=== PATIENT | female | born 1955 | race Caucasian/White ===

== ENCOUNTER 2021-09-19 14:50 | Outpatient (REF) | payer MEDICARE, OTHER, SELFPAY ==
--- NOTE | ~2021-09-19 | MM_ITS ---
EXAMINATION: MM SCREENING DIGITAL BREAST TOMOSYNTHESIS, BILATERAL CLINICAL INFORMATION: Screening. Asymptomatic. The lifetime risk of breast cancer based on the Tyrer-Cuzick Model is 6.0%. COMPARISON: Mammography: May 06, 2019 and studies dating back to July 09, 2009 TECHNIQUE: Digital breast tomosynthesis is performed in both the craniocaudal and mediolateral oblique views along with computer-aided detection (CAD). Synthesized 2D images are generated from the tomosynthesis. FINDINGS: The breasts are almost entirely fatty (ACR BI-RADS breast composition Category a). There are no significant masses, abnormal calcifications, or other abnormalities. MM/MM tomosynthesis screening BI IMPRESSION: There are no significant changes from prior study. ASSESSMENT: BI-RADS 1: Negative RECOMMENDATION: Routine annual mammography screening. This patient's information was entered into a reminder system with a target due date for their next mammogram.
== END 2021-09-19 14:51 | disposition home or self-care (01) ==
LOC: HO.MAMMO 14:50
PROVIDERS: PCP Internal Medicine; Visit Provider Internal Medicine
DX: Z12.31 Encounter for screening mammogram for malignant neoplasm of breast (principal)
CPT/HCPCS: 77063; 77067

== ENCOUNTER 2024-02-22 13:15 | Outpatient (REF) | payer MEDICARE, SELFPAY ==
--- NOTE | ~2024-02-22 | MM_ITS ---
EXAMINATION: MM SCREENING DIGITAL BREAST TOMOSYNTHESIS, BILATERAL CLINICAL INFORMATION: Screening. Asymptomatic. COMPARISON: Mammography: This study is compared with prior exams dating back to TECHNIQUE: Digital breast tomosynthesis is performed in both the craniocaudal and mediolateral oblique views along with computer-aided detection (CAD). Synthesized 2D images are generated from the tomosynthesis. FINDINGS: The breasts are almost entirely fatty (ACR BI-RADS breast composition Category a). Circumscribed oval mass upper central breast middle depth stable dating back to 2013. There are no significant masses, abnormal calcifications, or other abnormalities. MM/MM tomosynthesis screening BI IMPRESSION: No mammographic evidence of malignancy. ASSESSMENT: BI-RADS BI-RADS 2 - Benign Findings RECOMMENDATION: Routine annual mammography screening. 1 year F/U This examination should not preclude the clinical evaluation of a suspicious palpable abnormality. This patient's information was entered into a reminder system with a target due date for their next mammogram. Electronically signed by: Pauline Muir DO 03/22/2024 05:10 PM EDT
== END 2024-02-22 13:16 | disposition home or self-care (01) ==
LOC: HO.MAMMO 13:15
PROVIDERS: PCP Internal Medicine; Visit Provider Internal Medicine
DX: Z12.31 Encounter for screening mammogram for malignant neoplasm of breast (principal)
CPT/HCPCS: 77063; 77067

== ENCOUNTER → 2024-02-22 13:30 | Outpatient (BNV) | payer MEDICARE, SELFPAY | PROVIDERS: PCP Internal Medicine; Visit Provider Internal Medicine | DX: Z12.31 Encounter for screening mammogram for malignant neoplasm of breast (principal) | CPT/HCPCS: 77063; 77067 ==

== ENCOUNTER 2025-03-06 09:47 | Outpatient (REF) | payer MEDICARE, SELFPAY ==
--- NOTE | ~2025-03-06 | MM_ITS ---
EXAMINATION: MM SCREENING DIGITAL BREAST TOMOSYNTHESIS, BILATERAL CLINICAL INFORMATION: Screening. Asymptomatic. COMPARISON: Mammography: Comparison is made with available priors TECHNIQUE: Digital breast mammography with tomosynthesis is performed in both the craniocaudal and mediolateral oblique views along with computer-aided detection (CAD). FINDINGS: There are scattered areas of fibroglandular density (ACR BI-RADS breast composition Category b). There are no significant masses, abnormal calcifications, or other abnormalities. MM/MM tomosynthesis screening BI IMPRESSION: No mammographic evidence of malignancy. ASSESSMENT: BI-RADS BI-RADS 1 - Negative RECOMMENDATION: Routine annual mammography screening. 1 year F/U This examination should not preclude the clinical evaluation of a suspicious palpable abnormality. This patient's information was entered into a reminder system with a target due date for their next mammogram. Electronically signed by: Pauline Muir DO 03/12/2025 05:27 PM EDT
--- OUTSIDE RECORDS SUMMARY | 2025-03-06 11:02 | XMS_ITS | Patient Health Record ---
[facility] Address [address] [place] [address] Care Team Providers Care Solid Waste Landfill Technician Name Role Phone Benji Campuzano MD Primary Care Provider UnavailJere Colvin Unavailable [phone] Reason For Referral No Information Medications Medication SIG (Take, Route, Fr equency, Duration) Notes Start Date End Date Status Physical Therapy . . dx: arthritis, spr ain and talar injury right foot and ankle 2-3x/week; Duration: 3-4 weeks 2016 A ctive Synthroid Active Physical Therapy . . dx: arthritis, spr ain and talar injury right foot and ankle 2-3x/week; Duration: 3-4 weeks A ctive Problems Problem Type SNOMED Code ICD Code Onset Dates Problem Status W/U Status Risk Notes Problem Primary osteoarthritis , right ankle and foot (M19.071) Active confirmed Plan Of Treatment Pending Test Test Name Order Date X ray : Foot, right 2V 2016 X ray : Ankle, right 3V 2016 Insurance Providers Payer Name Payer Address Payer Phone Subscriber Number Group Number Insured Name Patient Relationship to Insured Coverage Start Date Coverage End Date [facility] [address] [place] [address] [id number] Aurelia Diaz Self - patient is the insured Medical (General) History Medical History History ICD Code Measles Chicken pox Thyroid disorder Hospitalization History Reason Date(Month/Year) [facility] for [facility] foot - 02/27
--- OUTSIDE RECORDS SUMMARY | 2025-03-06 11:02 | XMS_ITS | Clinical Summary ---
Author Organization [facility] [address] [facility] Address [address] [place] [address] Phone Care Team Providers Care Grey Percher Name Role Phone Marianela Blackmon MD Primary Care Provider [phone] Allergies No known active allergies Medications albuterol sulfate (ProAir RespiClick) 90 mcg/actuation aerosol powdr breath activated Inhale 2 Puffs into the lungs every 4 hours as needed (sob). 11/20/19 23 Active cholecalcifero l (VITAMIN D-3) 50 mcg (2,000 unit) tablet 2,000 Units daily. 02/17/20 14 Active cyanocobalamin (VITAMIN B-12) 500 mcg tablet Take 1 Tablet by mouth daily for 360 days. 04/28/20 24 025 Active levothyroxine (SYNTHROID, LEVOTHROID) 100 mcg tablet TAKE 1 TABLET BY MOUTH EVERY DAY 90 tablet 3 06/21/20 24 Active pantoprazole (PROTONIX) 40 mg EC tablet Take 1 tablet (40 mg total) by mouth 1 (one) time each day. Do not crush, chew, or split. 30 each 5 09/21/19 25 025 Active busPIRone (BUSPAR) 10 mg tablet TAKE 1 TABLET BY MOUTH THREE TIMES A DAY 270 tablet 5 12/12/19 25 Active fluticasone propionate (FLONASE) 50 mcg/actuation nasal sprayIndicatio ns:Sinusitis, unspecified chronicity, unspecified location Administer 2 sprays into each nostril 1 (one) time each day. Shake gently. Before first use, prime pump. After use, clean tip and replace cap. 16 g 5 01/04/20 25 026 Active ALPRAZolam (XANAX) 0.5 mg tablet TAKE 1 TABLET (0.5 MG TOTAL) BY MOUTH TWICE A DAY NEEDED FOR ANXIETY MAX DAILY AMOUNT: 1 MG 56 tablet 2 02/27/20 25 Active ALPRAZolam (XANAX) 0.5 mg tablet Take 1 tablet (0.5 mg total) by mouth 2 (two) times a day if needed for anxiety. Max Daily Amount: 1 mg 56 tablet 2 02/24/20 25 Active ALPRAZolam (XANAX) 0.5 mg tablet Take 1 tablet (0.5 mg total) by mouth 2 (two) times a day if needed for anxiety. Max Daily Amount: 1 mg 56 tablet 2 09/05/19 25 025 Discontinued(Re order) ALPRAZolam (XANAX) 0.5 mg tablet TAKE 1 TABLET (0.5 MG TOTAL) BY MOUTH TWICE A DAY NEEDED FOR ANXIETY MAX DAILY AMOUNT: 1 MG 56 tablet 2 09/05/19 25 025 Discontinued Active Problems Problem Noted Date Diagnosed Date Overweight (BMI 25.0-29.9) 03/09/2019 Emphysema lung ([facility] V24, [facility] V28) 2018 Thyroiditis, chronic, lymphocytic 08/03/2017 Hypothyroidism 01/19/2017 Hyperlipidemia 01/19/2017 Anxiety 01/10/2015 Insomnia 11/21/2013 Internal hemorrhoids 12/08/2011 Encounters Date Type Department Care Team Description 01/03/2025 11:30 AM EDT Telemedicine Internal Medicine - [address] [address] Elsy Elliott NP Sinusitis, unspecified chronicity, unspecified location (Primary Dx) from Last 3 Months Immunizations Name Administration Dates Next Due Influenza trivalent, 0.5mL (Fluad) 65yo and olde r 05/05/2022 Moderna SARS-CoV-2 COVID-19, mRNA, LNP-S, preservative free 09/25/2020,08/28/2020 Pneumococcal conjugate 20 va lent (Prevnar 20, PCV 20) 2mo and older 03/22/2024 Pneumococcal polysaccharide 23 valent (Pneumovax 23) 2yo and older 02/16/2014 Surgical History Surgery Date Site/Laterality Comments CHOLECYSTECTOMY N/A PROCEDURE: HISTORICAL CHOLECYSTECTOMY TUBAL LIGATION N/A PROCEDURE: HISTORICAL TUBAL LIGATION OTHER SURGICAL HISTORY PROCEDURE: GA ANES HRNA RPR UPR ABD LMBR&VNT HERNIA&/DEHSN Medical History Medical History Date Comments Anxiety 01/10/2015 DX:Anxiety Hyperlipidemia 01/19/2017 DX:Hyperlipidemi a Hypothyroidism 01/19/2017 DX:Hypothyroidis m Insomnia 11/21/2013 DX:Insomnia Internal hemorrhoids 12/08/2011 DX:Internal hemorrhoids Thyroiditis, chronic, lymphocytic 08/03/2017 DX:Thyroiditis, chronic, lymphocytic Family History Medical History Relation Name Comments Heart attack Father Heart failure Father Melanoma Mother Relation Name Status Comments Father Mother Social History Tobacco Use Types Packs/Day Years Used Date Smoking Tobacco: Former Cigarettes 0.5 50 0 03/08/1969 - 03/08/2019 Smokeless Tobacco: Never Tobacco Cessation:Counseling Given: Not Answered Alcohol Use Standard Drinks/Week Comments No 0 (1 standard drink = 0.6 oz pur e alcohol) Housing Instability Answer Date Recorde d Are you worried that in the next 2 months you may not have stable housing? No 01/03/2025 Food Access & Nutrition Answer Date Rec orded Do you have access to a vari ety of food including fruits and vegetables? Yes 01/03/2025 Access to Healthcare Answer Date Record ed Within the last 3 months, ho w many times did you visit the emergency department for your medical care? 0 01/03/2025 Health Literacy Answer Date Recorded How often do you need to hav e someone help you when you read instructions, pamphlets, or other written material from your doctor or pharmacy? Never 01/03/2025 Caregiver: How often do you need to have someone help you when you read instructions, pamphlets, or other written material from your doctor or pharmacy? Not on file 01/03/2025 Financial Risk Answer Date Recorded How hard is it for you to pa y for the very basics like food, housing, medical care, and air conditioning / heating? Not very hard 01/03/2025 Transportation Answer Date Recorded Has the lack of transportati on kept you from meetings, work, or from getting things needed for daily living? No Has the lack of transportati on kept you from medical appointments or from getting medications? No 01/03/2025 Social Isolation Answer Date Recorded How often do you feel lonely or isolated from th ose around you? Never 01/03/2025 Food Risk Answer Date Recorded Within the past 12 months we worried whether our food would run out before we got money to buy more. Never true 01/03/2025 Within the past 12 months th e food we bought just didn't last and we didn't have money to get more. Never true 01/03/2025 Dependent Care Answer Date Recorded Do you need help finding or paying for care for your loved ones. For example, child protection specialist or elderly care for an older adult? No 01/03/2025 Education Answer Date Recorded Do you think completing more education or training, like finishing a GED, going to college, or learning a trade, would be helpful for you? No 01/03/2025 Employment and Income Answer Date Recor ded During the last four weeks, have you been actively looking for work? No 01/03/2025 Living Situation Answer Date Recorded What is your living situation? 0 01/03/2025 Comments Unknown Sex and Gender Information Value Date Recorded Sex Assigned at Not on file Legal Sex Female 10:30 AM EST Gender Identity Not on file Sexual Orientation Not on file Obstetrics History Last Filed Vital Signs Vital Sign Reading Time Taken Comments Blood Pressure 128/86 09/20/2024 10:40 AM EDT Pulse 82 09/20/2024 10:40 AM EDT Temperature 36.4 C (97.5 F) 09/20/2024 10:40 AM EDT Respiratory Rate - - Oxygen Saturation 98% 09/20/2024 10:40 AM EDT Inhaled Oxygen Concentration - - Weight 77.1 kg (170 lb) 03/22/2024 8:45 AM EDT Height 162.6 cm (5' 4 ) 03/22/2024 8:45 AM EDT Body Mass Index 29.18 03/22/2024 8:45 AM EDT Plan of Treatment Upcoming Encounters Date Type Department Care Team (Late st Contact Info) Description 03/30/2025 9:30 AM EDT Office Visit Internal Medicine - [address] [place] [id number] Marianela Blackmon MD [address] [place] [phone] Health Maintenance Due Date Last Done Comments Breast Cancer Screening 1955 Zoster Vaccines (1 of 2) 2003 RSV Immunization Adult Patients (1 - Risk 60-74 years 1-dose series) 2013 Falls Risk Assessment 06/02/2022 Hepatitis C Screening 06/02/2022 Medicare Annual Wellness Visit 06/02/2022 Osteoporosis Screening (Bone Density Screening) 06/02/2022 COVID-19 Vaccine ( season) 2024 06/06/2021, 09/25/2020, 08/28/2020 Influenza Vaccine (#1) 2025 , 03/29/2021, 05/09/2020, Additional history exists Lung Cancer Screening (Low Dose CT) 08/18/2025 08/18/2024, 08/06/2023, 07/31/2022, Additional history exists Social Influencers of Health Screening 01/03/2026 01/03/2025 Colorectal Cancer Screening: Colonoscopy 05/13/2027 05/13/2022 DTaP,Tdap,and Td Vaccines (2 - Td or Tdap) 04/19/2029 04/19/2019 Cholesterol Screening (Lipid Panel) 10/02/2029 10/02/2024, 09/20/2023 Pneumococcal Vaccine: 50+ Years Completed 03/22/2024, 03/15/2019, 02/16/2014 Depression Screening Completed 01/03/2025, 03/22/20 24 HIB Vaccines Aged Out No longer eligi ble based on patient's age to complete this topic HPV Vaccines Aged Out No longer eligi ble based on patient's age to complete this topic Hepatitis A Vaccines Aged Out No long er eligible based on patient's age to complete this topic Hepatitis B Vaccines Aged Out No long er eligible based on patient's age to complete this topic IPV Vaccines Aged Out No longer eligi ble based on patient's age to complete this topic MMR Vaccines Aged Out No longer eligi ble based on patient's age to complete this topic Meningococcal ACWY Vaccine Aged Out N o longer eligible based on patient's age to complete this topic Meningococcal B Vaccine Aged Out No l onger eligible based on patient's age to complete this topic RSV Immunization Patients Under 20 months Aged Out No longer eligible based on patient's age to complete this topic Varicella Vaccines Aged Out No longer eligible based on patient's age to complete this topic Procedures Procedure Name Priority Date/Time Associated Diagnosis Comments LIPID PANEL WITH REFLEX TO DIRECT LDL Routine 10/02/2024 10:53 AM EDT Hypothyroidism due to acquired atrophy of thyroid Mixed hyperlipidemia Thyroiditis, chronic, lymphocytic CT LUNG SCREENING Routine 08/18/2024 1:0 5 PM EST History of tobacco use Encounter for screening for lung cancer DEPRESSION SCREENING Routine 03/22/2024 COLONOSCOPY Routine 05/13/2022 from Last 3 Months or Most Recently Relevant to Health Maintenance Results * (ABNORMAL) Lipid panel with reflex to direct LDL (10/02/2024 10:53 AM EDT) Cholesterol 207(H) 0 - 200 mg/dL LAB CHE[facility]STRY [facility] Triglycerides 168(H) 0 - 150 mg/dL LAB CHEMISTRY METHOD 10/02/2024 3:36 PM [facility] HDL 60 >=40 mg/dL LAB CHEMISTRY METHOD 10/02/2024 3:36 PM [facility] LDL Calculated 113(H) 0 - 100 mg/dL LAB CHEMISTRY METHOD 10/02/2024 3:36 PM [facility] VLDL Cholesterol Jose 33.6 mg/dL LAB CHEMISTRY METHOD 10/02/2024 3:36 PM [facility] Non HDL Chol. (LDL+VLDL) 147(H) <145 mg/dL LAB CHEMISTRY METHOD 10/02/2024 3:36 PM [facility] Chol/HDL Ratio 3.5 0.0 - 4.4 LAB CHEMISTRY METHOD 10/02/2024 3:36 PM [facility] Blood Venous blood specimen / Unknown Venipuncture / Unknown 10/02/2024 10:53 AM EDT 10/02/2024 10:53 AM EDT us Marianela Blackmon MD LAB BLOOD ORDERABLES Final Res ult [facility] [address] [place] [address], * CT Lung Screening (08/18/2024 1:05 PM EST) Anatomical Region Laterality Modality Chest Computed Tomogra phy 08/22/2024 4:55 PM EST Impressions 08/22/2024 5:01 PM EST No suspicious pulmonary nodules or masses. No significant change from the prior study. Lung RADS 1, recommend low-dose screening chest CT in 12 months -------- FINAL REPORT -------- Dictated By: Prema Martin Dictated Date: 08/22/2024 16:55 ET Assigned Physician: Prema Martin Reviewed and Electronically Signed By: Prema Martin Signed Date: 08/22/2024 17:01 ET Workstation ID: [id number] Transcribed By: Self Edit Transcribed Date: 08/22/2024 16:55 ET Narrative 08/22/2024 5:01 PM EST INDICATION: Quit smoking 8 years ago with 24 pack-year smoking history FINDINGS: Low-dose CT scan of the chest obtained as a lung cancer screening study. Scanner: AppCard speed 64 slice VCT Dose reduction technique: ASIR (Adaptive statistical iterative reconstruction) and/or AEC (automated exposure control) Dose: total exam DLP 161 mGY per cm COMPARISON: Compared to multiple prior studies most recent from August 06, 2023. Lung: Emphysematous changes without infiltrates or effusions. No discrete pulmonary nodules or masses. Mild parenchymal scarring. Thin-walled 18 mm x 11 mm pulmonary cyst within the right lung base is similar to the prior studies. Lymph nodes: No thoracic lymphadenopathy. Mediastinum: Trachea and esophagus are within normal limits. Heart normal in size and shape without pericardial effusion. Mediastinal vascular structures are normal in course and caliber. Bony structures: Within normal limits for the patient's age. Procedure Note Mario, Parshant, MD - 08/22/2024 INDICATION: Quit smoking 8 years ago with 24 pack-year smoking history FINDINGS: Low-dose CT scan of the chest obtained as a lung cancerscreening study. Scanner: AppCard speed 64 slice VCT Dose reduction technique: ASIR (Adaptive statistical iterativereconstruction) and/or AEC (automated exposure control) Dose: total exam DLP 161 mGY per cm COMPARISON: Compared to multiple prior studies most recent from 2023. Lung: Emphysematous changes without infiltrates or effusions. No discretepulmonary nodules or masses. Mild parenchymal scarring. Thin-walled 18 mmx 11 mm pulmonary cyst within the right lung base is similar to the priorstudies. Lymph nodes: No thoracic lymphadenopathy. Mediastinum: Trachea and esophagus are within normal limits. Heart normalin size and shape without pericardial effusion. Mediastinal vascularstructures are normal in course and caliber. Bony structures: Within normal limits for the patient's age. IMPRESSION: No suspicious pulmonary nodules or masses. No significant change from theprior study. Lung RADS 1, recommend low-dose screening chest CT in 12 months -------- FINAL REPORT -------- Dictated By: Prema Martin Dictated Date: 08/22/2024 16:55 ET Assigned Physician: Prema Martin Reviewed and Electronically Signed By: Prema Martin Signed Date: 08/22/2024 17:01 ET Workstation ID: [id number] Transcribed By: Self Edit Transcribed Date: 08/22/2024 16:55 ET Khadar Sanford MD IMG CT PROCEDURES Final Result * Depression Screening (03/22/2024) Depression Screening Abstracted Historical Provider HEALTH MAINTENANCE Final Result * Colonoscopy (05/13/2022) Colonoscopy No Interpretation , Abstracted Anatomical Region Laterality Modality Other Historical Provider HEALTH MAINTENANCE Final Result from Last 3 Months or Most Recently Relevant to Health Maintenance Insurance [employer] MEDICARE Care Teams Grey Percher Relationship Specialty Start Date End Date Marianela Blackmon MD [address] [phone] PCP - General Internal Medicine 04/30/21
== END 2025-03-06 09:48 | disposition home or self-care (01) ==
LOC: HO.MAMMO 09:47
PROVIDERS: PCP Internal Medicine; Visit Provider Internal Medicine
DX: Z12.31 Encounter for screening mammogram for malignant neoplasm of breast (principal)
CPT/HCPCS: 77063; 77067

== ENCOUNTER → 2025-03-06 10:00 | Outpatient (BNV) | payer MEDICARE, SELFPAY | PROVIDERS: PCP Internal Medicine; Visit Provider Internal Medicine | DX: Z12.31 Encounter for screening mammogram for malignant neoplasm of breast (principal) | CPT/HCPCS: 77063; 77067 ==